=== PATIENT | male | born 1950 | race Caucasian/White ===

== ENCOUNTER 2018-09-28 13:31 | Inpatient (IN) | payer OTHER, MEDICARE ==
[2018-09-28 14:54] LABS: ADD MAN DIFF? NO
[2018-09-28 14:55] LABS: ABNORMAL IP MESSAGE 1; BASOPHIL # 0.1 10^3/ul (0.0-0.1); BASOPHILS % 1.5 % (0.0-2.0); EOSINOPHILS # 0.1 10^3/ul (0.0-0.5); HEMATOCRIT 36.4 % (42.0-52.0); HEMOGLOBIN 11.2 g/dl (14.0-18.0); LYMPHOCYTES # 0.6 10^3/ul (0.8-2.9); LYMPHOCYTES % 14.1 % (15.0-51.0); MEAN CORPUSCULAR HEMOGLOBIN 30.7 pg (29.0-33.0); MEAN CORPUSCULAR HGB CONC 30.8 g/dl (32.0-37.0); MEAN CORPUSCULAR VOLUME 99.7 fl (82.0-101.0); MEAN PLATELET VOLUME 12.4 fl (7.4-10.4); MONOCYTE # 0.4 10^3/ul (0.3-0.9); MONOCYTES % 8.8 % (0.0-11.0); NEUTROPHIL # 2.9 10^3/ul (1.6-7.5); NEUTROPHILS % 73.1 % (39.0-77.0); PLATELET COUNT 106 10^3/UL (140-415); POSITIVE DIFF @See below; RED BLOOD COUNT 3.65 10^6/ul (4.70-6.10); RED CELL DISTRIBUTION WIDTH 15.3 % (11.5-14.5)
[2018-09-28] MEDS: ONDANSETRON 4 MG INJ IV (14:56)
[2018-09-28 15:11] LABS: ANION GAP 10 (5-13); BLOOD UREA NITROGEN 56 mg/dl (7-20); CALCIUM 8.4 mg/dl (8.4-10.2); CARBON DIOXIDE 28 mmol/L (21-31); CHLORIDE 100 mmol/L (97-110); CREATININE 6.76 mg/dl (0.61-1.24); Estimated GFR 8 mL/min (>60); SODIUM 138 mmol/L (135-144)
[2018-09-28 15:15] LABS: INR 1.03; PARTIAL THROMBOPLASTIN TIME 30.3 Sec (23.0-35.0); PROTIME 13.6 Sec (11.9-14.9); PT RATIO 1.1
[2018-09-28 15:25] LABS: POTASSIUM 6.3 mmol/L (3.5-5.1)
[2018-09-28] MEDS ORDERED: DEXTROSE 50% 50 ML SYRINGE IV (16:00)
[2018-09-28] MEDS: ALBUTEROL 0.5% (NEB) 2.5 MG/0.5 ML AMP INH (16:11)
[2018-09-28] MEDS: INSULIN REGULAR, HUMAN 100 UNIT/1 ML 3ML VIAL IVP (16:16)
[2018-09-28] MEDS: SODIUM POLYSTYRENE 15 GM KIT (POWDER + SORBITOL) PO (16:17)
[2018-09-28] MEDS: NITROGLYCERIN 50 MG/D5W (PMX) 250 ML IV ×3 (16:54→22:41)
[2018-09-28] MEDS ORDERED: NACL 0.9% 3 ML SYG IV (20:30)
[2018-09-28] MEDS ORDERED: ACETAMINOPHEN 325 MG TAB PO (20:30)
[2018-09-28] MEDS ORDERED: SODIUM CHLORIDE 0.9% 1L BAG IV (20:30)
[2018-09-28] MEDS ORDERED: DOCUSATE SODIUM 100 MG CAP PO (20:30)
[2018-09-28] MEDS ORDERED: BISACODYL (EC) 5 MG TAB PO (20:30)
[2018-09-28] MEDS ORDERED: ALBUMIN HUMAN 25% 100 ML IV (20:30)
[2018-09-28] MEDS: HEPARIN 5,000 UNIT/1 ML VIAL SC (22:00)
[2018-09-28] MEDS: INSULIN ASPART [NOVOLOG] 3 ML PEN SC (22:27)
[2018-09-28] MEDS: INSULIN GLARGINE [LANTus] (100 UNITS/ML) SYG SC (22:28)
[2018-09-28 22:40] LABS: ANION GAP 9 (5-13); BLOOD UREA NITROGEN 57 mg/dl (7-20); CALCIUM 8.3 mg/dl (8.4-10.2); CARBON DIOXIDE 29 mmol/L (21-31); CHLORIDE 100 mmol/L (97-110); CREATININE 6.96 mg/dl (0.61-1.24); Estimated GFR 8 mL/min (>60); GLUCOSE 297 mg/dl (70-220); SODIUM 138 mmol/L (135-144)
[2018-09-28 22:43] LABS: POTASSIUM 6.1 mmol/L (3.5-5.1)
[2018-09-28 23:10] LABS: HEPATITIS B SURFACE ANTIGEN NEGATIVE (NEGATIVE)
[2018-09-28 23:28] LABS: HEPATITIS B SURFACE ANTIBODY POSITIVE (NEGATIVE)
[2018-09-28] MEDS: PERMETHRIN 5% 60 GM CR TOP (23:53)
[2018-09-29] MEDS ORDERED: ONDANSETRON 4 MG INJ IV (01:00)
[2018-09-29] MEDS: ONDANSETRON 4 MG INJ IV (01:04)
[2018-09-29] MEDS: ACCU-CHEK XX (02:00)
[2018-09-29] MEDS: hydrALAzine 20 MG INJ IV ×3 (03:20→16:46)
[2018-09-29 05:03] LABS: ADD MAN DIFF? NO
[2018-09-29 05:04] LABS: ABNORMAL IP MESSAGE 1; BASOPHIL # 0.1 10^3/ul (0.0-0.1); BASOPHILS % 1.3 % (0.0-2.0); EOSINOPHILS # 0.1 10^3/ul (0.0-0.5); EOSINOPHILS % 2.3 % (0.0-7.0); HEMATOCRIT 35.1 % (42.0-52.0); HEMOGLOBIN 11.2 g/dl (14.0-18.0); LYMPHOCYTES # 0.5 10^3/ul (0.8-2.9); LYMPHOCYTES % 8.9 % (15.0-51.0); MEAN CORPUSCULAR HEMOGLOBIN 30.9 pg (29.0-33.0); MEAN CORPUSCULAR HGB CONC 31.9 g/dl (32.0-37.0); MEAN CORPUSCULAR VOLUME 96.7 fl (82.0-101.0); MEAN PLATELET VOLUME 11.9 fl (7.4-10.4); MONOCYTE # 0.5 10^3/ul (0.3-0.9); MONOCYTES % 10.4 % (0.0-11.0); NEUTROPHILS % 76.5 % (39.0-77.0); PLATELET COUNT 110 10^3/UL (140-415); POSITIVE DIFF @See below; RED BLOOD COUNT 3.63 10^6/ul (4.70-6.10); RED CELL DISTRIBUTION WIDTH 15.1 % (11.5-14.5)
[2018-09-29 05:04] LABS: WHITE BLOOD COUNT 5.2 10^3/ul (4.8-10.8)
[2018-09-29 05:28] LABS: ALANINE AMINOTRANSFERASE 18 IU/L (13-69); ALBUMIN 3.6 g/dl (3.3-4.9); ALKALINE PHOSPHATASE 102 IU/L (42-121); ANION GAP 8 (5-13); ASPARTATE AMINO TRANSFERASE 22 IU/L (15-46); BILIRUBIN,INDIRECT 0.4 mg/dl (0-1.1); BILIRUBIN,TOTAL 0.4 mg/dl (0.2-1.3); BLOOD UREA NITROGEN 32 mg/dl (7-20); CALCIUM 8.5 mg/dl (8.4-10.2); CARBON DIOXIDE 31 mmol/L (21-31); CHLORIDE 102 mmol/L (97-110); CHOL/HDL RATIO 2.4 RATIO; CHOLESTEROL 154 mg/dl (100-200); CREATININE 4.18 mg/dl (0.61-1.24); Estimated GFR 14 mL/min (>60); GLUCOSE 79 mg/dl (70-220); HDL CHOLESTEROL 64 mg/dl (31-75); LDL CHOLESTEROL,CALCULATED 81 mg/dl; PHOSPHORUS 3.1 mg/dl (2.5-4.9); POTASSIUM 4.4 mmol/L (3.5-5.1); SODIUM 141 mmol/L (135-144); TRIGLYCERIDES 43 mg/dl (0-149)
[2018-09-29] MEDS: HEPARIN 5,000 UNIT/1 ML VIAL SC ×3 (05:56→22:05)
[2018-09-29] MEDS: NITROGLYCERIN 50 MG/D5W (PMX) 250 ML IV (05:57)
[2018-09-29] MEDS: INSULIN ASPART [NOVOLOG] 3 ML PEN SC ×4 (06:44→20:41)
[2018-09-29 07:11] LABS: HEMOGLOBIN A1C 8.5 % (0-5.9)
[2018-09-29] MEDS ORDERED: FUROSEMIDE 40 MG TAB PO (09:00)
[2018-09-29] MEDS ORDERED: INSULIN LISPRO 4 UNIT SQ (09:00)
[2018-09-29] MEDS ORDERED: INSULIN ASPART [NOVOLOG] 3 ML PEN SC (09:00)
[2018-09-29] MEDS: CALCIUM ACETATE 667 MG CAP PO ×3 (09:52→17:17)
[2018-09-29] MEDS: LABETALOL 200 MG TAB PO ×3 (09:55→22:58)
[2018-09-29] MEDS: FUROSEMIDE 20 MG TAB PO (09:56)
[2018-09-29] MEDS: FAMOTIDINE 20 MG TAB PO (10:08)
[2018-09-29 15:06] LABS: GLUCOSE 407 mg/dl (70-220)
[2018-09-29] MEDS: INSULIN GLARGINE [LANTus] (100 UNITS/ML) SYG SC (20:41)
[2018-09-30] MEDS: ACCU-CHEK XX (02:54)
[2018-09-30] MEDS: HEPARIN 5,000 UNIT/1 ML VIAL SC ×3 (06:18→22:28)
[2018-09-30 07:00] LABS: ADD MAN DIFF? NO
[2018-09-30 07:03] LABS: WHITE BLOOD COUNT 4.3 10^3/ul (4.8-10.8)
[2018-09-30 07:03] LABS: ABNORMAL IP MESSAGE 1; BASOPHIL # 0.1 10^3/ul (0.0-0.1); BASOPHILS % 1.4 % (0.0-2.0); EOSINOPHILS # 0.1 10^3/ul (0.0-0.5); EOSINOPHILS % 1.6 % (0.0-7.0); HEMATOCRIT 39.3 % (42.0-52.0); HEMOGLOBIN 12.3 g/dl (14.0-18.0); LYMPHOCYTES # 0.6 10^3/ul (0.8-2.9); LYMPHOCYTES % 13.2 % (15.0-51.0); MEAN CORPUSCULAR HEMOGLOBIN 31.1 pg (29.0-33.0); MEAN CORPUSCULAR HGB CONC 31.3 g/dl (32.0-37.0); MEAN CORPUSCULAR VOLUME 99.2 fl (82.0-101.0); MEAN PLATELET VOLUME 11.8 fl (7.4-10.4); MONOCYTE # 0.5 10^3/ul (0.3-0.9); MONOCYTES % 11.1 % (0.0-11.0); NEUTROPHIL # 3.1 10^3/ul (1.6-7.5); NEUTROPHILS % 72.5 % (39.0-77.0); PLATELET COUNT 130 10^3/UL (140-415); POSITIVE DIFF @See below; RED BLOOD COUNT 3.96 10^6/ul (4.70-6.10); RED CELL DISTRIBUTION WIDTH 15.4 % (11.5-14.5)
[2018-09-30 07:38] LABS: ALANINE AMINOTRANSFERASE 18 IU/L (13-69); ALBUMIN 3.4 g/dl (3.3-4.9); ALBUMIN/GLOBULIN RATIO 1.41; ALKALINE PHOSPHATASE 97 IU/L (42-121); ANION GAP 9 (5-13); ASPARTATE AMINO TRANSFERASE 23 IU/L (15-46); BILIRUBIN,INDIRECT 0.3 mg/dl (0-1.1); BILIRUBIN,TOTAL 0.3 mg/dl (0.2-1.3); BLOOD UREA NITROGEN 25 mg/dl (7-20); CALCIUM 8.6 mg/dl (8.4-10.2); CARBON DIOXIDE 32 mmol/L (21-31); CHLORIDE 100 mmol/L (97-110); CREATININE 3.72 mg/dl (0.61-1.24); Estimated GFR 16 mL/min (>60); PHOSPHORUS 3.7 mg/dl (2.5-4.9); POTASSIUM 4.8 mmol/L (3.5-5.1); SODIUM 141 mmol/L (135-144); TOTAL PROTEIN 5.8 g/dl (6.1-8.1)
[2018-09-30 07:43] LABS: GLUCOSE 41 mg/dl (70-220)
[2018-09-30] MEDS: INSULIN ASPART [NOVOLOG] 3 ML PEN SC ×4 (07:54→20:42)
[2018-09-30] MEDS ORDERED: GLUCOSE GEL 15 GRAM TUBE PO ×2 (09:30)
[2018-09-30] MEDS ORDERED: GLUCAGON 1 MG INJ IM (09:30)
[2018-09-30] MEDS: FAMOTIDINE 20 MG TAB PO (09:30)
[2018-09-30] MEDS: FUROSEMIDE 20 MG TAB PO (09:30)
[2018-09-30] MEDS ORDERED: DEXTROSE 50% 50 ML SYRINGE IV ×2 (09:30)
[2018-09-30] MEDS ORDERED: GLUCOSE GEL 15 GRAM TUBE BUCCAL (09:30)
[2018-09-30] MEDS: CALCIUM ACETATE 667 MG CAP PO ×3 (09:31→17:53)
[2018-09-30] MEDS: LABETALOL 200 MG TAB PO ×3 (09:32→20:04)
[2018-09-30] MEDS: DEXTROSE 50% 50 ML SYRINGE IV (09:32)
[2018-09-30] MEDS: LIDOCAINE 1% (MPF) 5 ML VIAL (11:15)
[2018-09-30] MEDS: hydrALAzine 20 MG INJ IV (12:03)
[2018-09-30 12:14] LABS: FLUID LD 257 U/L
[2018-09-30 12:17] LABS: FLUID TYPE PLEURAL FLUID
[2018-10-01] MEDS: ACCU-CHEK XX (02:15)
[2018-10-01] MEDS: hydrALAzine 20 MG INJ IV (04:44)
[2018-10-01] MEDS: HEPARIN 5,000 UNIT/1 ML VIAL SC ×2 (05:45→08:56)
[2018-10-01 05:59] LABS: ADD MAN DIFF? NO
[2018-10-01 06:06] LABS: WHITE BLOOD COUNT 4.2 10^3/ul (4.8-10.8)
[2018-10-01 06:06] LABS: ABNORMAL IP MESSAGE 1; BASOPHIL # 0.1 10^3/ul (0.0-0.1); BASOPHILS % 1.2 % (0.0-2.0); EOSINOPHILS # 0.1 10^3/ul (0.0-0.5); EOSINOPHILS % 1.2 % (0.0-7.0); HEMATOCRIT 38.2 % (42.0-52.0); HEMOGLOBIN 12.1 g/dl (14.0-18.0); LYMPHOCYTES # 0.4 10^3/ul (0.8-2.9); LYMPHOCYTES % 10.6 % (15.0-51.0); MEAN CORPUSCULAR HEMOGLOBIN 31.2 pg (29.0-33.0); MEAN CORPUSCULAR HGB CONC 31.7 g/dl (32.0-37.0); MEAN CORPUSCULAR VOLUME 98.5 fl (82.0-101.0); MEAN PLATELET VOLUME 11.9 fl (7.4-10.4); MONOCYTE # 0.4 10^3/ul (0.3-0.9); MONOCYTES % 9.9 % (0.0-11.0); NEUTROPHIL # 3.2 10^3/ul (1.6-7.5); NEUTROPHILS % 76.6 % (39.0-77.0); PLATELET COUNT 133 10^3/UL (140-415); POSITIVE DIFF @See below; RED BLOOD COUNT 3.88 10^6/ul (4.70-6.10); RED CELL DISTRIBUTION WIDTH 15.3 % (11.5-14.5)
[2018-10-01 06:20] LABS: ALANINE AMINOTRANSFERASE 18 IU/L (13-69); ALBUMIN 3.5 g/dl (3.3-4.9); ALBUMIN/GLOBULIN RATIO 1.34; ALKALINE PHOSPHATASE 116 IU/L (42-121); ANION GAP 12 (5-13); ASPARTATE AMINO TRANSFERASE 21 IU/L (15-46); BILIRUBIN,INDIRECT 0.3 mg/dl (0-1.1); BILIRUBIN,TOTAL 0.3 mg/dl (0.2-1.3); BLOOD UREA NITROGEN 42 mg/dl (7-20); CALCIUM 8.6 mg/dl (8.4-10.2); CARBON DIOXIDE 26 mmol/L (21-31); CHLORIDE 96 mmol/L (97-110); CREATININE 5.13 mg/dl (0.61-1.24); Estimated GFR 11 mL/min (>60); GLUCOSE 319 mg/dl (70-220); PHOSPHORUS 3.9 mg/dl (2.5-4.9); POTASSIUM 5.7 mmol/L (3.5-5.1); SODIUM 134 mmol/L (135-144); TOTAL PROTEIN 6.1 g/dl (6.1-8.1)
[2018-10-01] MEDS: CALCIUM ACETATE 667 MG CAP PO ×2 (08:27→13:02)
[2018-10-01] MEDS: FAMOTIDINE 20 MG TAB PO (08:27)
[2018-10-01] MEDS: FUROSEMIDE 20 MG TAB PO (08:27)
[2018-10-01] MEDS: INSULIN ASPART [NOVOLOG] 3 ML PEN SC ×2 (08:55→11:58)
[2018-10-01] MEDS: LABETALOL 200 MG TAB PO ×2 (08:56→13:00)
== END 2018-10-01 16:47 | disposition home or self-care (01) | DRG 682 ==
LOC: E/R 13:31 → TEL 09-29 18:18 → ICU 19:20
PROC: 5A1D70Z Performance of Urinary Filtration, Intermittent, Less than 6 Hours Per Day (ICD-10-PCS; 2018-09-28)
PROC: 0W9B3ZZ Drainage of Left Pleural Cavity, Percutaneous Approach (ICD-10-PCS; principal; 2018-09-30)
DX: I12.0 Hypertensive chronic kidney disease with stage 5 chronic kidney disease or end stage renal disease (principal); N18.6 End stage renal disease; I16.1 Hypertensive emergency; J90 Pleural effusion, not elsewhere classified; J81.1 Chronic pulmonary edema; E87.5 Hyperkalemia; E11.22 Type 2 diabetes mellitus with diabetic chronic kidney disease; D64.9 Anemia, unspecified; E78.5 Hyperlipidemia, unspecified; Z99.2 Dependence on renal dialysis; Z79.4 Long term (current) use of insulin
CPT/HCPCS: 36415; 71045; 71046; 76942; 80048; 80053; 80061; 82306; 82962; 83036; 83615; 83735; 84100; 84157; 84443; 85025; 85610; 85730; 86706; 87070; 87081; 87102; 87116; 87340; 88104; 88305; 90935; 93005; 93306; 93970; 93971; 94664; 96374; 96375; 99285-25

== ENCOUNTER 2018-11-16 22:11 | Inpatient (IN) | payer MEDICARE, OTHER ==
[2018-11-16 23:00] LABS: ADD MAN DIFF? NO
[2018-11-16 23:08] LABS: BASOPHIL # 0.1 10^3/ul (0.0-0.1); BASOPHILS % 0.7 % (0.0-2.0); EOSINOPHILS # 0.1 10^3/ul (0.0-0.5); HEMATOCRIT 36.1 % (42.0-52.0); HEMOGLOBIN 11.7 g/dl (14.0-18.0); LYMPHOCYTES # 0.6 10^3/ul (0.8-2.9); LYMPHOCYTES % 7.8 % (15.0-51.0); MEAN CORPUSCULAR HEMOGLOBIN 31.4 pg (29.0-33.0); MEAN CORPUSCULAR HGB CONC 32.4 g/dl (32.0-37.0); MEAN CORPUSCULAR VOLUME 96.8 fl (82.0-101.0); MEAN PLATELET VOLUME 12.3 fl (7.4-10.4); MONOCYTE # 0.5 10^3/ul (0.3-0.9); NEUTROPHIL # 6.4 10^3/ul (1.6-7.5); NEUTROPHILS % 83.5 % (39.0-77.0); PLATELET COUNT 106 10^3/UL (140-415); RED BLOOD COUNT 3.73 10^6/ul (4.70-6.10); RED CELL DISTRIBUTION WIDTH 12.6 % (11.5-14.5)
[2018-11-16 23:08] LABS: WHITE BLOOD COUNT 7.7 10^3/ul (4.8-10.8)
[2018-11-16 23:25] LABS: ANION GAP 15 (5-13); BLOOD UREA NITROGEN 68 mg/dl (7-20); CALCIUM 9.1 mg/dl (8.4-10.2); CARBON DIOXIDE 24 mmol/L (21-31); CHLORIDE 96 mmol/L (97-110); CREATININE 7.99 mg/dl (0.61-1.24); Estimated GFR 7 mL/min (>60); GLUCOSE 383 mg/dl (70-220); SODIUM 135 mmol/L (135-144)
[2018-11-16 23:32] LABS: POTASSIUM 7.1 mmol/L (3.5-5.1)
[2018-11-17] MEDS ORDERED: ONDANSETRON 4 MG INJ IV
[2018-11-17] MEDS: ALBUTEROL 0.5% (NEB) 2.5 MG/0.5 ML AMP INH (00:02)
[2018-11-17] MEDS: morphine 4 MG/ML VIAL IV (00:21)
[2018-11-17] MEDS: CA CHLORIDE 10% 10 ML SYRINGE IV (00:21)
[2018-11-17] MEDS: ONDANSETRON 4 MG INJ IV ×2 (00:21→12:31)
[2018-11-17] MEDS: NA BICARBONATE 8.4% 50 ML SYG IV (00:21)
[2018-11-17] MEDS: DEXTROSE 50% 50 ML SYRINGE IV ×2 (00:22→21:05)
[2018-11-17] MEDS: INSULIN REGULAR, HUMAN 100 UNIT/1 ML 3ML VIAL IVP (00:56)
[2018-11-17] MEDS: LABETALOL HCL 20MG INJ IV (02:42)
[2018-11-17] MEDS: hydrALAzine 20 MG INJ IV ×2 (02:45→11:14)
[2018-11-17] MEDS ORDERED: ALBUTEROL/IPRATROPIUM (NEB) 3 ML AMP HHN (03:00)
[2018-11-17] MEDS ORDERED: NACL 0.9% 3 ML SYG IV (03:00)
[2018-11-17] MEDS ORDERED: ACETAMINOPHEN 325 MG TAB PO ×2 (03:00)
[2018-11-17] MEDS: NA POLYST SULFON 15 GM/60 ML BTL PO (03:32)
[2018-11-17 06:58] LABS: ADD MAN DIFF? NO
[2018-11-17 07:02] LABS: WHITE BLOOD COUNT 5.8 10^3/ul (4.8-10.8)
[2018-11-17 07:02] LABS: ABNORMAL IP MESSAGE 1; BASOPHILS % 0.7 % (0.0-2.0); EOSINOPHILS % 0.3 % (0.0-7.0); HEMATOCRIT 34.2 % (42.0-52.0); HEMOGLOBIN 11.1 g/dl (14.0-18.0); LYMPHOCYTES # 0.5 10^3/ul (0.8-2.9); LYMPHOCYTES % 7.8 % (15.0-51.0); MEAN CORPUSCULAR HEMOGLOBIN 31.2 pg (29.0-33.0); MEAN CORPUSCULAR HGB CONC 32.5 g/dl (32.0-37.0); MEAN CORPUSCULAR VOLUME 96.1 fl (82.0-101.0); MEAN PLATELET VOLUME 11.9 fl (7.4-10.4); MONOCYTE # 0.5 10^3/ul (0.3-0.9); MONOCYTES % 7.8 % (0.0-11.0); NEUTROPHIL # 4.8 10^3/ul (1.6-7.5); NEUTROPHILS % 83.1 % (39.0-77.0); PLATELET COUNT 101 10^3/UL (140-415); POSITIVE DIFF @See below; RED BLOOD COUNT 3.56 10^6/ul (4.70-6.10); RED CELL DISTRIBUTION WIDTH 12.4 % (11.5-14.5)
[2018-11-17 07:26] LABS: CHOL/HDL RATIO 2.5 RATIO; HDL CHOLESTEROL 62 mg/dl (31-75); LDL CHOLESTEROL,CALCULATED 87 mg/dl; TRIGLYCERIDES 58 mg/dl (0-149)
[2018-11-17 07:26] LABS: CHOLESTEROL 161 mg/dl (100-200); HEMOGLOBIN A1C 9.1 % (0-5.9)
[2018-11-17 07:32] LABS: ANION GAP 11 (5-13); BLOOD UREA NITROGEN 75 mg/dl (7-20); CALCIUM 9.3 mg/dl (8.4-10.2); CARBON DIOXIDE 28 mmol/L (21-31); CHLORIDE 99 mmol/L (97-110); CREATININE 8.18 mg/dl (0.61-1.24); Estimated GFR 7 mL/min (>60); GLUCOSE 124 mg/dl (70-220); MAGNESIUM 2.4 mg/dl (1.7-2.5); PHOSPHORUS 5.3 mg/dl (2.5-4.9); SODIUM 138 mmol/L (135-144)
[2018-11-17 07:39] LABS: POTASSIUM 6.7 mmol/L (3.5-5.1)
[2018-11-17] MEDS: CALCIUM ACETATE 667 MG CAP PO ×3 (08:21→17:50)
[2018-11-17] MEDS: FUROSEMIDE 40 MG TAB PO (08:21)
[2018-11-17] MEDS: LABETALOL 200 MG TAB PO ×3 (08:21→21:00)
[2018-11-17] MEDS ORDERED: HYDROCODONE/APAP (5/325) TAB PO (08:30)
[2018-11-17] MEDS: HYDROCODONE/APAP (5/325) TAB PO (08:30)
[2018-11-17 10:25] LABS: POTASSIUM 6.7 mmol/L (3.5-5.1)
[2018-11-17] MEDS ORDERED: ALBUMIN HUMAN 25% 100 ML IV (10:30)
[2018-11-17] MEDS ORDERED: SODIUM CHLORIDE 0.9% 1L BAG IV (10:30)
[2018-11-17] MEDS ORDERED: hydrALAzine 20 MG INJ IV (11:00)
[2018-11-17] MEDS: HYDROmorphONE 1 MG/ML SYG IV (11:14)
[2018-11-17] MEDS ORDERED: morphine 2 MG INJ IV (11:30)
[2018-11-17] MEDS ORDERED: GLUCAGON 1 MG INJ IM ×2 (12:00)
[2018-11-17] MEDS ORDERED: GLUCOSE GEL 15 GRAM TUBE BUCCAL ×2 (12:00)
[2018-11-17] MEDS ORDERED: GLUCOSE GEL 15 GRAM TUBE PO ×4 (12:00)
[2018-11-17] MEDS ORDERED: DEXTROSE 50% 50 ML SYRINGE IV ×2 (12:00)
[2018-11-17] MEDS: NIFEdipine (XL) 60 MG TAB PO ×2 (12:11→22:40)
[2018-11-17 12:30] LABS: HEPATITIS B SURFACE ANTIGEN NEGATIVE (NEGATIVE)
[2018-11-17] MEDS: INSULIN GLARGINE [LANTus] (100 UNITS/ML) SYG SC (12:44)
[2018-11-17] MEDS: INSULIN ASPART [NOVOLOG] 3 ML PEN SC ×3 (13:29→21:00)
[2018-11-17 22:39] LABS: GLUCOSE 106 mg/dl (70-220)
[2018-11-18] MEDS: ACCU-CHEK XX ×2 (02:34→20:38)
[2018-11-18] MEDS: HYDROCODONE/APAP (5/325) TAB PO ×2 (05:59→17:02)
[2018-11-18 06:01] LABS: ADD MAN DIFF? NO
[2018-11-18 06:04] LABS: ABNORMAL IP MESSAGE 1; BASOPHILS % 0.4 % (0.0-2.0); EOSINOPHILS # 0.1 10^3/ul (0.0-0.5); EOSINOPHILS % 1.8 % (0.0-7.0); HEMATOCRIT 33.5 % (42.0-52.0); HEMOGLOBIN 10.8 g/dl (14.0-18.0); LYMPHOCYTES # 0.3 10^3/ul (0.8-2.9); LYMPHOCYTES % 7.2 % (15.0-51.0); MEAN CORPUSCULAR HEMOGLOBIN 31.4 pg (29.0-33.0); MEAN CORPUSCULAR HGB CONC 32.2 g/dl (32.0-37.0); MEAN CORPUSCULAR VOLUME 97.4 fl (82.0-101.0); MONOCYTE # 0.5 10^3/ul (0.3-0.9); MONOCYTES % 11.7 % (0.0-11.0); NEUTROPHIL # 3.5 10^3/ul (1.6-7.5); NEUTROPHILS % 78.7 % (39.0-77.0); PLATELET COUNT 98 10^3/UL (140-415); POSITIVE DIFF @See below; RED BLOOD COUNT 3.44 10^6/ul (4.70-6.10); RED CELL DISTRIBUTION WIDTH 12.7 % (11.5-14.5)
[2018-11-18 06:04] LABS: WHITE BLOOD COUNT 4.5 10^3/ul (4.8-10.8)
[2018-11-18 06:28] LABS: ALANINE AMINOTRANSFERASE 24 IU/L (13-69); ALBUMIN 3.1 g/dl (3.3-4.9); ALKALINE PHOSPHATASE 79 IU/L (42-121); ANION GAP 9 (5-13); ASPARTATE AMINO TRANSFERASE 28 IU/L (15-46); BILIRUBIN,INDIRECT 0.1 mg/dl (0-1.1); BILIRUBIN,TOTAL 0.1 mg/dl (0.2-1.3); BLOOD UREA NITROGEN 38 mg/dl (7-20); CALCIUM 8.6 mg/dl (8.4-10.2); CARBON DIOXIDE 31 mmol/L (21-31); CHLORIDE 96 mmol/L (97-110); CREATININE 5.42 mg/dl (0.61-1.24); Estimated GFR 11 mL/min (>60); GLUCOSE 141 mg/dl (70-220); POTASSIUM 4.6 mmol/L (3.5-5.1); SODIUM 136 mmol/L (135-144); TOTAL PROTEIN 5.9 g/dl (6.1-8.1)
[2018-11-18] MEDS: INSULIN ASPART [NOVOLOG] 3 ML PEN SC ×4 (07:55→20:38)
[2018-11-18] MEDS: CALCIUM ACETATE 667 MG CAP PO ×3 (08:15→17:02)
[2018-11-18] MEDS: FUROSEMIDE 40 MG TAB PO (08:16)
[2018-11-18] MEDS: NIFEdipine (XL) 60 MG TAB PO ×2 (08:17→20:37)
[2018-11-18] MEDS: INSULIN GLARGINE [LANTus] (100 UNITS/ML) SYG SC (08:27)
[2018-11-18] MEDS: LABETALOL 200 MG TAB PO ×3 (09:00→20:37)
[2018-11-18 09:40] LABS: IRON 44 ug/dl (35-150)
[2018-11-18 09:50] LABS: % IRON SATURATION 24 % SAT (22-52); TOTAL IRON BINDING CAPACITY 180 ug/dl (241-421)
[2018-11-18] MEDS: HYDROmorphONE 1 MG/ML SYG IV (11:44)
[2018-11-18] MEDS: ONDANSETRON 4 MG INJ IV ×2 (11:55→17:05)
[2018-11-18] MEDS: IBUPROFEN 200 MG TAB PO ×2 (13:54→20:37)
[2018-11-19 06:17] LABS: ANION GAP 10 (5-13); BLOOD UREA NITROGEN 50 mg/dl (7-20); CALCIUM 8.2 mg/dl (8.4-10.2); CARBON DIOXIDE 30 mmol/L (21-31); CHLORIDE 94 mmol/L (97-110); CREATININE 7.12 mg/dl (0.61-1.24); Estimated GFR 8 mL/min (>60); GLUCOSE 141 mg/dl (70-220); POTASSIUM 4.9 mmol/L (3.5-5.1); SODIUM 134 mmol/L (135-144)
[2018-11-19] MEDS: INSULIN ASPART [NOVOLOG] 3 ML PEN SC ×4 (07:59→20:54)
[2018-11-19] MEDS: CALCIUM ACETATE 667 MG CAP PO ×3 (08:19→17:15)
[2018-11-19] MEDS: IBUPROFEN 200 MG TAB PO ×2 (08:19→20:53)
[2018-11-19] MEDS: INSULIN GLARGINE [LANTus] (100 UNITS/ML) SYG SC (08:39)
[2018-11-19] MEDS: NIFEdipine (XL) 60 MG TAB PO ×2 (09:00→20:52)
[2018-11-19] MEDS: FUROSEMIDE 40 MG TAB PO (09:00)
[2018-11-19] MEDS: LABETALOL 200 MG TAB PO ×3 (09:00→20:52)
[2018-11-19 12:37] LABS: INR 0.89; PROTIME 12.2 Sec (11.9-14.9)
[2018-11-19] MEDS: ACCU-CHEK XX (20:55)
[2018-11-20 07:22] LABS: ANION GAP 7 (5-13); BLOOD UREA NITROGEN 35 mg/dl (7-20); CALCIUM 8.2 mg/dl (8.4-10.2); CARBON DIOXIDE 32 mmol/L (21-31); CHLORIDE 97 mmol/L (97-110); CREATININE 5.15 mg/dl (0.61-1.24); Estimated GFR 11 mL/min (>60); POTASSIUM 4.2 mmol/L (3.5-5.1); SODIUM 136 mmol/L (135-144)
[2018-11-20 07:25] LABS: GLUCOSE 48 mg/dl (70-220)
[2018-11-20] MEDS: INSULIN ASPART [NOVOLOG] 3 ML PEN SC ×4 (07:31→21:00)
[2018-11-20] MEDS: DEXTROSE 50% 50 ML SYRINGE IV (07:32)
[2018-11-20] MEDS: IBUPROFEN 200 MG TAB PO ×2 (08:38→21:01)
[2018-11-20] MEDS: CALCIUM ACETATE 667 MG CAP PO ×3 (08:38→17:53)
[2018-11-20] MEDS: NIFEdipine (XL) 60 MG TAB PO ×2 (08:39→21:01)
[2018-11-20] MEDS: FUROSEMIDE 40 MG TAB PO (08:40)
[2018-11-20] MEDS: LABETALOL 200 MG TAB PO ×3 (08:40→21:00)
[2018-11-20] MEDS: INSULIN GLARGINE [LANTus] (100 UNITS/ML) SYG SC (08:50)
[2018-11-20] MEDS: LIDOCAINE 1% (MPF) 5 ML VIAL (10:35)
[2018-11-20 11:30] LABS: FLUID LD 303 U/L
[2018-11-20 11:31] LABS: FLUID TOTAL PROTEIN 3.4 g/dl
[2018-11-20 11:32] LABS: FLUID GLUCOSE 106 mg/dl; FLUID TYPE THORACENTESIS FLUID
[2018-11-20 11:33] LABS: FLUID TYPE THORACENTESIS FLUID
[2018-11-20 12:26] LABS: FLD TYPE THORACENTHESIS
[2018-11-20 12:26] LABS: FLD CLARITY SLIGHTLY HAZY; FLD COLOR YELLOW; FLD MN% 87.2 %; FLD PMN% 12.8 %; FLD RBC 0 /uL; FLD WBC 39 /cmm
[2018-11-20 12:27] LABS: PATH REVIEW? YES
[2018-11-21] MEDS: ACCU-CHEK XX (02:00)
[2018-11-21] MEDS: FUROSEMIDE 40 MG TAB PO (08:52)
[2018-11-21] MEDS: NIFEdipine (XL) 60 MG TAB PO ×2 (08:52→20:11)
[2018-11-21] MEDS: IBUPROFEN 200 MG TAB PO ×2 (08:52→20:12)
[2018-11-21] MEDS: LABETALOL 200 MG TAB PO ×3 (08:53→20:11)
[2018-11-21] MEDS: CALCIUM ACETATE 667 MG CAP PO ×3 (08:53→17:36)
[2018-11-21] MEDS: INSULIN ASPART [NOVOLOG] 3 ML PEN SC ×4 (09:07→20:19)
[2018-11-21] MEDS: INSULIN GLARGINE [LANTus] (100 UNITS/ML) SYG SC (13:29)
[2018-11-22] MEDS: ACCU-CHEK XX (02:53)
[2018-11-22] MEDS: CALCIUM ACETATE 667 MG CAP PO ×3 (07:49→17:13)
[2018-11-22] MEDS: INSULIN ASPART [NOVOLOG] 3 ML PEN SC ×4 (07:49→21:29)
[2018-11-22] MEDS: INSULIN GLARGINE [LANTus] (100 UNITS/ML) SYG SC (08:01)
[2018-11-22] MEDS: LABETALOL 200 MG TAB PO ×3 (08:39→21:00)
[2018-11-22] MEDS: NIFEdipine (XL) 60 MG TAB PO ×2 (08:40→21:05)
[2018-11-22] MEDS: FUROSEMIDE 40 MG TAB PO (08:40)
[2018-11-22] MEDS: IBUPROFEN 200 MG TAB PO ×2 (08:41→21:04)
[2018-11-23] MEDS: ACCU-CHEK XX (02:56)
[2018-11-23 07:04] LABS: ADD MAN DIFF? NO
[2018-11-23 07:09] LABS: EOSINOPHILS # 0.1 10^3/ul (0.0-0.5); EOSINOPHILS % 2.9 % (0.0-7.0); HEMATOCRIT 36.4 % (42.0-52.0); HEMOGLOBIN 11.7 g/dl (14.0-18.0); LYMPHOCYTES # 0.7 10^3/ul (0.8-2.9); LYMPHOCYTES % 16.6 % (15.0-51.0); MEAN CORPUSCULAR HEMOGLOBIN 30.7 pg (29.0-33.0); MEAN CORPUSCULAR HGB CONC 32.1 g/dl (32.0-37.0); MEAN CORPUSCULAR VOLUME 95.5 fl (82.0-101.0); MEAN PLATELET VOLUME 12.3 fl (7.4-10.4); MONOCYTE # 0.6 10^3/ul (0.3-0.9); MONOCYTES % 14.7 % (0.0-11.0); NEUTROPHIL # 2.6 10^3/ul (1.6-7.5); NEUTROPHILS % 64.3 % (39.0-77.0); PLATELET COUNT 114 10^3/UL (140-415); RED BLOOD COUNT 3.81 10^6/ul (4.70-6.10); RED CELL DISTRIBUTION WIDTH 12.3 % (11.5-14.5)
[2018-11-23 07:09] LABS: WHITE BLOOD COUNT 4.1 10^3/ul (4.8-10.8)
[2018-11-23 07:27] LABS: ANION GAP 9 (5-13); BLOOD UREA NITROGEN 55 mg/dl (7-20); CALCIUM 8.1 mg/dl (8.4-10.2); CARBON DIOXIDE 28 mmol/L (21-31); CHLORIDE 93 mmol/L (97-110); CREATININE 6.01 mg/dl (0.61-1.24); Estimated GFR 9 mL/min (>60); GLUCOSE 201 mg/dl (70-220); POTASSIUM 5.5 mmol/L (3.5-5.1); SODIUM 130 mmol/L (135-144)
[2018-11-23] MEDS: CALCIUM ACETATE 667 MG CAP PO ×2 (07:53→11:31)
[2018-11-23] MEDS: INSULIN GLARGINE [LANTus] (100 UNITS/ML) SYG SC (07:59)
[2018-11-23] MEDS: INSULIN ASPART [NOVOLOG] 3 ML PEN SC ×2 (08:00→11:50)
[2018-11-23] MEDS: IBUPROFEN 200 MG TAB PO (08:07)
[2018-11-23] MEDS: LABETALOL 200 MG TAB PO ×2 (08:07→12:06)
[2018-11-23] MEDS: FUROSEMIDE 40 MG TAB PO (08:07)
[2018-11-23] MEDS: NIFEdipine (XL) 60 MG TAB PO (08:08)
== END 2018-11-23 16:30 | disposition home or self-care (01) | DRG 205 ==
LOC: E/R 22:11 → TEL 23:58
PROC: 5A1D70Z Performance of Urinary Filtration, Intermittent, Less than 6 Hours Per Day (ICD-10-PCS; 2018-11-17)
PROC: 0W9B3ZZ Drainage of Left Pleural Cavity, Percutaneous Approach (ICD-10-PCS; principal; 2018-11-20)
DX: S22.31XA Fracture of one rib, right side, initial encounter for closed fracture (principal); N18.6 End stage renal disease; I16.1 Hypertensive emergency; J90 Pleural effusion, not elsewhere classified; J93.9 Pneumothorax, unspecified; I12.0 Hypertensive chronic kidney disease with stage 5 chronic kidney disease or end stage renal disease; M54.9 Dorsalgia, unspecified; E87.5 Hyperkalemia; D69.6 Thrombocytopenia, unspecified; E11.65 Type 2 diabetes mellitus with hyperglycemia; E11.22 Type 2 diabetes mellitus with diabetic chronic kidney disease; G89.29 Other chronic pain; E78.5 Hyperlipidemia, unspecified; I16.0 Hypertensive urgency; D63.1 Anemia in chronic kidney disease; W07.XXXA Fall from chair, initial encounter; Z99.2 Dependence on renal dialysis; Z79.4 Long term (current) use of insulin; Y92.815 Train as the place of occurrence of the external cause
CPT/HCPCS: 71045; 71110; 71250; 72100; 72128; 76942; 80048; 80053; 80061; 82945; 82947; 82962; 83036; 83540; 83615; 83735; 84100; 84132; 84157; 85025; 85610; 87070; 87102; 87116; 87340; 88104; 88305; 89051; 90935; 93005; 94664; 99285-25